=== PATIENT | female | born 1955 | race Caucasian/White ===

== ENCOUNTER → 2020-08-30 12:34 | Outpatient (BNVA) | payer BC, SELFPAY | PROVIDERS: Visit Provider Electrodiagnostic Medicine | DX: Z11.59 Encounter for screening for other viral diseases (principal); R50.9 Fever, unspecified | CPT/HCPCS: 87635 ==

== ENCOUNTER → 2023-08-29 11:43 | Outpatient (BNVA) | payer MEDICARE, SELFPAY | PROVIDERS: PCP Family Medicine; Visit Provider Family Medicine | DX: Z13.6 Encounter for screening for cardiovascular disorders (principal); Z78.9 Other specified health status | CPT/HCPCS: 80053; 80061; 84443; 85025 ==